=== PATIENT | female | born 1970 | race African-American/Black ===

== ENCOUNTER → 2019-02-10 | Outpatient (CLI) | payer OTHER ==
--- NOTE | 2019-02-10 16:58 | WOMENS IMAGING REPORT ---
EXAM DESCRIPTION: 3D SCREENING MAMMO BILAT COMPLETED DATE/TIME: 02/10/2019 3:29 pm REASON FOR STUDY: Z12.31 3D BILATERAL SCREENING MAMMOGRAM Z12.31 ENCNTR SCREEN MAMMOGRAM FOR MALIGN ANT NEOPLASM OF SANDRA COMPARISON: 2012, 2015 EXAM PARAMETERS: Views: Standard craniocaudal and mediolateral oblique views of each breast recorded using digital acquisition and breast tomosynthesis. Read with the assistance of CAD. .[facility] - [employer] Version 9.2 LIMITATIONS: None. FINDINGS: No suspicious masses, suspicious calcifications or architectural distortion. No areas of c oncern. IMPRESSION: NORMAL MAMMOGRAM. BIRADS 1. BREAST DENSITY: b. There are scattered areas of fibroglandular density. BIRAD: 1 NEGATIVE RECOMMENDATION: ROUTINE SCREENING COMMENT: The patient has been notified of the results by letter per MQSA requirements. Additional no tification policies are in place for contacting patient with suspicious or incomplete findings. Quality ID #[id number]: The [employer] recommends an annual screening mammogram for women aged 40 years or over. This facility utilizes a reminder system to ensure that all patients receive reminder letters, and/or direct phone calls for appointments. This includes reminders for routine scr eening mammograms, diagnostic mammograms, or other Breast Imaging Interventions when appropriate. Th is patient will be placed in the appropriate reminder system. TECHNICAL DOCUMENTATION: FINDING NUMBER: (1) ASSESSMENT: (1) JOB ID: [id number] [email or web address]- All Rights Reserved Reading location - IP/workstation name: [email or web address]
== END ==
LOC: WI 13:25
PROVIDERS: ATTEND Family Medicine
DX: Z12.31 Encounter for screening mammogram for malignant neoplasm of breast (principal)
CPT/HCPCS: 77063; 77067

== ENCOUNTER 2019-03-05 15:07 | Emergency (ER) | payer OTHER ==
[2019-03-05 16:20] VITALS: BP 129/69
[2019-03-05] MEDS ORDERED: ONDANSETRON HCL INJ/PF 4 MG/2 ML SDV IV ONE (16:24)
[2019-03-05] MEDS ORDERED: NORMAL SALINE 1000 ML 1,000 ML IV ONE (16:24)
[2019-03-05] MEDS ORDERED: MORPHINE SULFATE 10 MG/ML INJ IV ONE (16:24)
--- NOTE | 2019-03-05 16:40 | ER Document Report ---
ED GI/ - General Chief Complaint: Abdominal Pain Stated Complaint: POST OP COMPLICATIONS Time Seen by Provider: 03/05/19 16:00 Primary Care Provider: ALBERTO SEGAL MD [Primary Care Provider] - Follow up as needed Mode of Arrival: Wheelchair Information source: Patient Notes: Patient is a 48-year-old female who comes emergency room today complaining of abdominal pain. Patient states that she just had a NovaSure procedure done which is an ablation of the uterus in [place]. Dr. Maher was the performing physician. Patient states that she was doing fine until she left the clinic and on her drive back into [place] she started with some dull pain t hat started on the right side and then escalated around to her abdomen and back to her left side to where it became sharp stabbing pain. She has vomited a couple times and is still nauseated. She denies any other medical problems has had no vaginal bleeding post procedure. TRAVEL OUTSIDE OF THE [place] IN LAST 30 DAYS: No - HPI Patient complains to provider of: Abdominal pain, Flank pain, Pelvic pain, Vomiting Onset: Just prior to arrival Timing/Duration: Sudden, Worse Quality of pain: Burning, Cramping, Sharp, Stabbing Severity at maximum: Severe Severity in ED: Severe Pain Level: 5 Context: Other - Recent surgical procedure Vaginal bleeding (Compared to normal period): None Sexual history: Inactive Associated symptoms: Nausea Exacerbated by: Denies Relieved by: Denies Similar symptoms previously: No Recently seen / treated by doctor: Yes - Related Data Allergies/Adverse Reactions: No Known Allergies Allergy (Verified 03/05/19 15:09) Past Medical History - General Information source: Patient, Office - Social History Smoking Status: Never Smoker Chew tobacco use (# tins/day): No Frequency of alcohol use: None Drug Abuse: None Lives with: Family Family History: Reviewed & Not Pertinent Patient has suicidal ideation: No Patient has homicidal ideation: No Renal/ Medical History: Denies: Hx Peritoneal Dialysis Psychiatric Medical History: Reports: Hx Depression Past Surgical History: Reports: Hx Tubal Ligation - Immunizations Hx Diphtheria, Pertussis, Tetanus Vaccination: Yes Review of Systems - Review of Systems Constitutional: No symptoms reported EENT: No symptoms reported Cardiovascular: No symptoms reported Respiratory: No symptoms reported Gastrointestinal: See HPI, Abdominal pain Genitourinary: No symptoms reported Female Genitourinary: See HPI, Other - Pelvic pain Musculoskeletal: No symptoms reported Skin: No symptoms reported Hematologic/Lymphatic: No symptoms reported Neurological/Psychological: No symptoms reported -: Yes All other systems reviewed and negative Physical Exam - Vital signs Vitals: Temp Pulse Resp BP Pulse Ox 98.9 F 76 16 117/66 100 03/05/19 15:21 03/05/19 15:21 03/05/19 15:21 03/05/19 15:21 03/05/19 15:21 Interpretation: Normal - Notes Notes: PHYSICAL EXAMINATION: GENERAL: Patient is well-nourished well-developed 48-year-old female who is in moderate distress and obvious pain and discomfort on physical exam. HEAD: Atraumatic, normocephalic. EYES: Pupils equal round and reactive to light, extraocular movements intact, conjunctiva are normal. LUNGS: Breath sounds clear to auscultation bilaterally and equal. No wheezes rales or rhonchi. HEART: Regular rate and rhythm without murmurs ABDOMEN: Examination patient's area of concern is her abdomen and pelvic area. Patient is diffusely tender on palpation of her lower abdominal area and pelvic region. She is tender enough that she does not like any amount of palpation or percussion done to the abdominal area. She also has tenderness to her CVA areas bilaterally to percussion. Female : deferred presently until such time his CT can be performed. There is no complaint of vaginal bleeding at this time. Pelvic will be performed if necessary. Patient is not wanting us to do one at this point. Musculoskeletal: Patient displays a moderate amount of back tenderness to percussion. She will not allow us to perform any type of percussion to the back and or movement of her legs hurts as well. Difficult to assess at this time. NEUROLOGICAL: Cranial nerves grossly intact. Normal speech, normal gait. No rmal sensory, motor exams PSYCH: Anxious SKIN: Warm, Dry, normal turgor, no rashes or lesions noted. Course - Re-evaluation Re-evalutation: 03/05/19 16:45 Patient's arrival to the emergency room and having recent procedure done which was the endometrial ablation which is called a NovaSure patient writhing in pain I felt it was necessary to contact the original surgeon. The original surgeons Dr.Nicole Maher. I was first put through to the physician director motion picture which was Dr. Leal and when I informed her that the procedure had just been done a little bit ago she informed that Dr. Maher was still in the office and gave me an extension to contact. Dr. Freeman was more than kind enough to answer the phone and did state that the likelihood of any type of a perforation would be very slim the whole procedure takes approximately 70 seconds and that patient did seem to be a little adverse to pain. She indicated that patient received 2 injections there and she complained how badly they hurt. She also stated that the speculum was hurting her more than she had ever had dissipated a that would. Dr. Maher said the patient has received Toradol, Valium, and Phenergan. She suggested that we would do a normal [employer] work-up on the patient to include possibly a CT to show perforation. Also suggested basic labs as we always would do here. My main concern for contacting her was I was not 100% certain of the exact procedure that was done and did know if there is something else we needed to be looking for rather than the obvious. 03/05/19 17:[address] came back normal. Her CT said no pneumoperitoneum no acute findings. Her labs were all normal. Patient is resting comfortably after getting the morphine. At this point I will write her for some Phenergan to keep the medications in with because according to daughter they given her her pain medication when she first needed it and ended up throwing that up so we will write her for some Phenergan and she give that every 4 hours throughout the nig ht and then she can take her medication as directed. Patient and daughter are very happy with that plan - Vital Signs Vital signs: Temp Pulse Resp BP Pulse Ox 98.8 F 70 26 H 129/69 H 100 03/05/19 16:19 03/05/19 16:19 03/05/19 16:19 03/05/19 16:19 03/05/19 16:19 - Laboratory Result Diagrams: 03/05/19 16:35 03/05/19 16:35 Laboratory results interpreted by me: 03/05/19 03/05/19 16:35 16:35 RDW 14.6 H Potassium 3.4 L BUN 6 L Discharge - Discharge Clinical Impression: Postoperative pain Condition: Stable Disposition: HOME, SELF-CARE Instructions: Antispasmodics ([facility]), Abdominal Pain ([facility]) Additional Instructions: Home and rest. Continue her medications as directed by your physician. The next dosage and give of her pain medication will be approximately 8:00. After that follow the directions on the bottles. Also been arranged for some Phenergan and you can take that every 4-6 hours tonight and then extended to every 8 hours tomorrow. After that I am also write you a small muscle relaxer to believe this is a lot of muscle spasms going Prescriptions: Promethazine HCl [Phenergan 25 mg Tablet] 25 mg PO Q4HP PRN #15 tablet PRN Reason: Cyclobenzaprine HCl [Flexeril 10 mg Tablet] 10 mg PO BID PRN #12 tablet PRN Reason: Referrals: ALBERTO SEGAL MD [Primary Care Provider] - Follow up as needed
[2019-03-05 16:58] LABS: ABSOLUTE BASOPHILS # (AUTO) 0.1 10^3/uL (0.0-0.2); ABSOLUTE LYMPHOCYTES (AUTO) 2.1 10^3/uL (0.5-4.7); ABSOLUTE MONOCYTES (AUTO) 0.3 10^3/uL (0.1-1.4); ABSOLUTE NEUT (AUTO) 4.3 10^3/uL (1.7-8.2); BASOPHILS % (AUTO) 0.9 % (0-2); EOSINOPHILS % (AUTO) 0.2 % (0-6); HEMATOCRIT 43.7 % (36.0-47.0); HEMOGLOBIN 14.4 g/dL (12.0-15.5); LYMPHOCYTES % (AUTO) 30.5 % (13-45); MEAN CORPUSCULAR HEMOGLOBIN 27.2 pg (27.0-33.4); MEAN CORPUSCULAR HGB CONC 32.9 g/dL (32.0-36.0); MEAN CORPUSCULAR VOLUME 83 fl (80-97); MONOCYTES % (AUTO) 5.1 % (3-13); PLATELET COUNT 238 10^3/uL (150-450); RED BLOOD COUNT 5.28 10^6/uL (3.72-5.28); RED CELL DISTRIBUTION WIDTH 14.6 % (11.5-14.0); SEGMENTED NEUTROPHILS % (AUTO) 63.3 % (42-78); TOTAL CELLS COUNTED % (AUTO) 100 %; WHITE BLOOD COUNT 6.8 10^3/uL (4.0-10.5)
--- NOTE | 2019-03-05 17:05 | RADIOLOGY REPORT (SQ) ---
EXAM DESCRIPTION: CT ABD/PELVIS NO ORAL OR IV COMPLETED DATE/TIME: 03/05/2019 4:52 pm REASON FOR STUDY: status post Novashur ablation ? perf COMPARISON: None. TECHNIQUE: CT scan of the abdomen and pelvis performed without intravenous or oral contrast. Images reviewed with lung, soft tissue, and bone windows. Reconstructed coronal and sagittal MPR images revi ewed. All images stored on PACS. All CT scanners at this facility use dose modulation, iterative reconstruction, and/or weight based d osing when appropriate to reduce radiation dose to as low as reasonably achievable (ALARA). [facility]: Dose Right [facility]: CareDose [facility]: Dose Right [facility]: Teradose 4D [facility]: Smart Swoodoo RADIATION DOSE: CT Rad equipment meets quality standard of care and radiation dose reduction techniq ues were employed. CTDIvol: 6.8 mGy. DLP: 345 mGy-cm.mGy. LIMITATIONS: None. FINDINGS: LOWER CHEST: No significant findings. No nodules or infiltrates. NON-CONTRASTED LIVER, SPLEEN, ADRENALS: Evaluation limited by lack of IV contrast. No identified sign ificant masses. PANCREAS: No masses. No peripancreatic inflammatory changes. GALLBLADDER: No identified stones by CT criteria. No inflammatory changes to suggest cholecystitis. RIGHT KIDNEY AND URETER: No suspicious masses. Assessment limited by lack of IV contrast. No signif icant calcifications. No hydronephrosis or hydroureter. LEFT KIDNEY AND URETER: No suspicious masses. Assessment limited by lack of IV contrast. 2 punctate nonobstructing nephroliths are seen within the superior pole collecting system. No hydronephrosis or hydroureter. AORTA AND RETROPERITONEUM: No aneurysm. No retroperitoneal masses or adenopathy. BOWEL AND PERITONEAL CAVITY: No obvious masses or inflammatory changes. No free fluid. Incidental no te is made of few scattered colonic diverticula without focal inflammatory changes. APPENDIX: Normal. PELVIS, BLADDER, AND ABDOMINAL WALL:No abnormal masses. No free fluid. Bladder normal. BONES: No significant findings. OTHER: No other significant finding. IMPRESSION: NO SIGNIFICANT OR ACUTE PROCESS IN THE ABDOMEN OR PELVIS. SPECIFICALLY, NO EVIDENCE OF PNEUMOPERITONEUM. COMMENT: Quality ID # [id number]: Final reports with documentation of one or more dose reduction techniques (e.g., Automated exposure control, adjustment of the mA and/or kV according to patient size, use of iterative reconstruction technique) TECHNICAL DOCUMENTATION: JOB ID: [id number] [employer]- All Rights Reserved Reading location - IP/workstation name: [email or web address]
[2019-03-05 17:19] LABS: ALANINE AMINOTRANSFERASE 22 U/L (9-52); ALBUMIN 4.2 g/dL (3.5-5.0); ALKALINE PHOSPHATASE 46 U/L (38-126); ANION GAP 9 (5-19); ASPARTATE AMINO TRANSFERASE 19 U/L (14-36); BILIRUBIN,DIRECT 0.1 mg/dL (0.0-0.4); BILIRUBIN,TOTAL 0.6 mg/dL (0.2-1.3); BLOOD UREA NITROGEN 6 mg/dL (7-20); CALCIUM 8.9 mg/dL (8.4-10.2); CARBON DIOXIDE 26 mmol/L (22-30); CHLORIDE 103 mmol/L (98-107); GLUCOSE 102 mg/dL (75-110); POTASSIUM 3.4 mmol/L (3.6-5.0); SODIUM 138.2 mmol/L (137-145); TOTAL PROTEIN 7.5 g/dL (6.3-8.2)
== END 2019-03-05 18:00 | disposition home or self-care (01) ==
LOC: ER 15:07
DX: G89.18 Other acute postprocedural pain (principal); R10.2 Pelvic and perineal pain; R11.2 Nausea with vomiting, unspecified; Z98.51 Tubal ligation status
CPT/HCPCS: 99284; 96361; 96374; 96375; 36415; 85025; 80053; 74176; J2270; J2405; J7030